=== PATIENT | male | born 1955 | race Caucasian/White ===

== ENCOUNTER 2017-09-15 16:44 | Emergency (ER) | payer MEDICAID ==
[~2017-09-15] VITALS: Ht 182.9 cm; Wt 135.0 kg
[~2017-09-15 16:44] MED LIST: FURO40TA PO; HUMI40KI SQ; HYDR-3516 PO; LISI-515 PO; METO1TAB9 PO; SIMV40TA PO; VESI5TAB2 PO; VIAG100T PO
[2017-09-15 16:46] VITALS: BP 175/99; PULSE 89; RESP 16; TEMP 99.1; O2SAT 95
[2017-09-15 17:24] VITALS: O2SAT 95
[2017-09-15] MEDS ORDERED: SODIUM CHLOR 0.9% 1000 ML INJ 1,000 ML IV ONE (17:30)
[2017-09-15] MEDS ORDERED: methylPREDNISolone SOD SUCC 125 MG/2 ML VIAL IV PUSH ONE (17:30)
--- NOTE | 2017-09-15 17:53 | PD ---
HPI Chief Complaint: GI Complaint Time Seen by Provider: 17:03 Travel History International Travel<30 days: No Contact w/Intl Traveler<30days: No Traveled to known affect area: No History of Present Illness HPI Patient is a 62-year-old male presents to emergency room with complaints of a URI. Patient reports that since Monday, he has not been feeling well, patient reports that he has had a productive cough, sore throat, myalgias. Patient reports that he is feeling warm, he is unsure if he has been having fevers. Reports that when he coughs, he has coughing fits and does have productive thick sputum. Reports that last night, he coughed up thick mucus and swallowed it, reports that he is unsure if he coughed up blood since it tasted like blood. Reports that his girlfriend was sick with similar symptoms. He did have the flu vaccination this year. Patient denies any chest pain or shortness of breath at this time, denies any recent travels, reports the only sick contact he has had was his girlfriend. Patient denies abdominal pain, denies any nausea vomiting, denies any consultation or diarrhea. PFSH Past Medical History Hx Anticoagulant Therapy: Yes (BABY ASA DAILY) Heart Rhythm Problems: No Cancer: No Cardiovascular Problems: Yes (HTN) High Cholesterol: Yes Chest Pain: No Congestive Heart Failure: No Diabetes: No Diminished Hearing: No Endocrine: No Genitourinary: No Hepatitis: No Hiatal Hernia: No Hypertension: Yes (ON MEDICATIONS) Immune Disorder: Yes (RA) Musculoskeletal: Yes (PSORIATIC ARTHRITIS, RHEUMATOID ARTHRITIS) Neurologic: No Reproductive: No Respiratory: No Thyroid Disease: No Tetanus Vaccination: Unknown Influenza Vaccination: No Past Surgical History Abdominal Surgery: No AICD: No Cardiac Surgery: No Endocrine Surgery: No Genitourinary Surgery: No Joint Replacement: Yes (l hip) Oral Surgery: Yes (TONSILLECTOMY CHILDHOOD) Pacemaker: No Thoracic Surgery: No Other Surgery: Yes (LEFT HIP REPLACEMENT) Social History Alcohol Use: Yes Tobacco Use: No Substance Use: No Allergies-Medications (Allergen,Severity, Reaction): Coded Allergies: cephalexin (Verified Allergy, Severe, RASH, 09/15/17) Reported Meds & Prescriptions Reported Meds & Active Scripts Active Vesicare (Solifenacin) 5 Mg Tab 5 Mg PO DAILY Viagra (Sildenafil Citrate) 100 Mg Tab 100 Mg PO DAILY PRN Reported Humira 2-Pack Inj (Adalimumab 2-Pack Inj) 40 Mg/0.8 Ml Syr 40 Mg SQ Q14D Hydrocodone-Acetaminophen 5-325 mg Tab 1 Tab PO Q6H PRN Simvastatin 40 Mg Tab 40 Mg PO HS Furosemide 40 Mg Tab 40 Mg PO DAILY Lisinopril 20 Mg Tab 20 Mg PO BID Metoprolol Succinate ER 24 HR (Metoprolol Succinate) 50 Mg Tab 50 Mg PO BID Review of Systems General / Constitutional: Positive: Chills, No: Fever Eyes: No: Visual changes HENT: No: Headaches Cardiovascular: No: Chest Pain or Discomfort Respiratory: Positive: Cough, No: Shortness of Breath, Wheezing, Other Gastrointestinal: No: Nausea, Vomiting, Abdominal Pain, Constipation Genitourinary: No: Dysuria Musculoskeletal: No: Pain Skin: No Rash Neurologic: No: Weakness Psychiatric: No: Depression Endocrine: No: Polydipsia Hematologic/Lymphatic: No: Easy Bruising Physical Exam Narrative GENERAL: NAD SKIN: Focused skin assessment warm/dry. HEAD: Atraumatic. Normocephalic. EYES: Pupils equal and round. No scleral icterus. No injection or drainage. ENT: No nasal bleeding or discharge. Mucous membranes pink and moist. NECK: Trachea midline. No JVD. CARDIOVASCULAR: Regular rate and rhythm. No murmur appreciated. RESPIRATORY: No accessory muscle use. Clear to auscultation. Breath sounds equal bilaterally. GASTROINTESTINAL: Abdomen soft, non-tender, nondistended. Hepatic and splenic margins not palpable. MUSCULOSKELETAL: No obvious deformities. No clubbing. No cyanosis. No edema. NEUROLOGICAL: Awake and alert. No obvious cranial nerve deficits. Motor grossly within normal limits. Normal speech. PSYCHIATRIC: Appropriate mood and affect; insight and judgment normal. Data Data Last Documented VS Vital Signs Date Time Temp Pulse Resp B/P (MAP) Pulse Ox O2 Delivery O2 Flow Rate FiO2 09/15/17 17:24 95 Room Air 09/15/17 16:46 99.1 89 16 175/99 (124) Orders Orders Complete Blood Count With Diff (09/15/17 17:17) Comprehensive Metabolic Panel (09/15/17 17:17) Influenzae A/B Antigen (09/15/17 17:17) Urinalysis - C+S If Indicated (09/15/17 17:17) Chest, Pa & Lat (09/15/17 17:17) Ecg Monitoring (09/15/17 17:17) Iv Access Insert/Monitor (09/15/17 17:17) Oximetry (09/15/17 17:17) Group A Rapid Strep Screen (09/15/17 17:17) Sodium Chlor 0.9% 1000 Ml Inj (Ns 1000 M (09/15/17 17:30) Methylprednisolone So Succ Inj (Solumedr (09/15/17 17:30) Prothrombin Time / Inr (Pt) (09/15/17 17:20) Act Partial Throm Time (Ptt) (09/15/17 17:20) Strep Culture (Group A) (09/15/17 17:40) Albuterol Hfa Inh (Proair Hfa Inh) (09/15/17 19:00) Azithromycin (Zithromax) (09/15/17 19:00) Labs Laboratory Tests Test 09/15/17 17:40 09/15/17 17:45 White Blood Count 5.2 TH/MM3 Red Blood Count 4.63 MIL/MM3 Hemoglobin 13.9 GM/DL Hematocrit 41.2 % Mean Corpuscular Volume 88.9 FL Mean Corpuscular Hemoglobin 30.0 PG Mean Corpuscular Hemoglobin Concent 33.7 % Red Cell Distribution Width 14.1 % Platelet Count 118 TH/MM3 Mean Platelet Volume 8.2 FL Neutrophils (%) (Auto) 68.5 % Lymphocytes (%) (Auto) 13.5 % Monocytes (%) (Auto) 13.9 % Eosinophils (%) (Auto) 3.7 % Basophils (%) (Auto) 0.4 % Neutrophils # (Auto) 3.6 TH/MM3 Lymphocytes # (Auto) 0.7 TH/MM3 Monocytes # (Auto) 0.7 TH/MM3 Eosinophils # (Auto) 0.2 TH/MM3 Basophils # (Auto) 0.0 TH/MM3 CBC Comment DIFF FINAL Differential Comment Prothrombin Time 9.7 SEC Prothromb Time International Ratio 1.0 RATIO Activated Partial Thromboplast Time 26.8 SEC Blood Urea Nitrogen 23 MG/DL Creatinine 1.40 MG/DL Random Glucose 100 MG/DL Total Protein 7.6 GM/DL Albumin 4.0 GM/DL Calcium Level 8.4 MG/DL Alkaline Phosphatase 57 U/L Aspartate Amino Transf (AST/SGOT) 47 U/L Alanine Aminotransferase (ALT/SGPT) 69 U/L Total Bilirubin 0.6 MG/DL Sodium Level 137 MEQ/L Potassium Level 3.9 MEQ/L Chloride Level 103 MEQ/L Carbon Dioxide Level 25.9 MEQ/L Anion Gap 8 MEQ/L Estimat Glomerular Filtration Rate 52 ML/MIN Urine Color YELLOW Urine Turbidity CLEAR Urine pH 5.5 Urine Specific [place] 1.020 Urine Protein NEG mg/dL Urine Glucose (UA) NEG mg/dL Urine Ketones NEG mg/dL Urine Occult Blood TRACE Urine Nitrite NEG Urine Bilirubin NEG Urine Urobilinogen 0.2 MG/DL Urine Leukocyte Esterase NEG Urine RBC 3-5 /hpf Urine WBC 0-2 /hpf Urine Squamous Epithelial Cells 0-5 /hpf Urine Bacteria NONE /hpf Microscopic Urinalysis Comment CULT NOT INDICATED MDM Medical Decision Making Medical Screen Exam Complete: Yes Emergency Medical Condition: Yes Medical Record Reviewed: Yes Interpretation(s) Vital Signs Date Time Temp Pulse Resp B/P (MAP) Pulse Ox O2 Delivery O2 Flow Rate FiO2 09/15/17 17:24 95 Room Air 09/15/17 16:46 99.1 89 16 175/99 (124 95 Differential Diagnosis Viral syndrome, influenza, pneumonia, bronchitis Narrative Course 62-year-old male presents to emergency room with complaints of myalgias, subjective fever and chills, productive cough since Monday. Patient reports that his girlfriend was recently sick with similar symptoms and may have been diagnosed with influenza. Patient denies any hemoptysis although he thinks that his phlegm tasted like blood when he coughed last night. During the course of the patients emergency department visit, the patients history, examination, and differential diagnosis were reviewed with the patient. The patient was placed on a front desk monitor with oximetry and frequent blood pressure monitoring. The patient had an IV access obtained and blood work sent for analysis. The patient was initially provided IV Solu-Medrol, IV fluids The patients laboratory studies were reviewed and remarkable for : Laboratory Tests Test 09/15/17 17:40 09/15/17 17:45 White Blood Count 5.2 TH/MM3 (4.0-11.0) Red Blood Count 4.63 MIL/MM3 (4.50-5.90) Hemoglobin 13.9 GM/DL (13.0-17.0) Hematocrit 41.2 % (39.0-51.0) Mean Corpuscular Volume 88.9 FL (80.0-100.0) Mean Corpuscular Hemoglobin 30.0 PG (27.0-34.0) Mean Corpuscular Hemoglobin Concent 33.7 % (32.0-36.0) Red Cell Distribution Width 14.1 % (11.6-17.2) Platelet Count 118 TH/MM3 (150-450) Mean Platelet Volume 8.2 FL (7.0-11.0) Neutrophils (%) (Auto) 68.5 % (16.0-70.0) Lymphocytes (%) (Auto) 13.5 % (9.0-44.0) Monocytes (%) (Auto) 13.9 % (0.0-8.0) Eosinophils (%) (Auto) 3.7 % (0.0-4.0) Basophils (%) (Auto) 0.4 % (0.0-2.0) Neutrophils # (Auto) 3.6 TH/MM3 (1.8-7.7) Lymphocytes # (Auto) 0.7 TH/MM3 (1.0-4.8) Monocytes # (Auto) 0.7 TH/MM3 (0-0.9) Eosinophils # (Auto) 0.2 TH/MM3 (0-0.4) Basophils # (Auto) 0.0 TH/MM3 (0-0.2) CBC Comment DIFF FINAL Differential Comment Prothrombin Time 9.7 SEC (9.8-11.6) Prothromb Time International Ratio 1.0 RATIO Activated Partial Thromboplast Time 26.8 SEC (24.3-30.1) Blood Urea Nitrogen 23 MG/DL (7-18) Creatinine 1.40 MG/DL (0.60-1.30) Random Glucose 100 MG/DL (74-106) Total Protein 7.6 GM/DL (6.4-8.2) Albumin 4.0 GM/DL (3.4-5.0) Calcium Level 8.4 MG/DL (8.5-10.1) Alkaline Phosphatase 57 U/L (45-117) Aspartate Amino Transf (AST/SGOT) 47 U/L (15-37) Alanine Aminotransferase (ALT/SGPT) 69 U/L (12-78) Total Bilirubin 0.6 MG/DL (0.2-1.0) Sodium Level 137 MEQ/L (136-145) Potassium Level 3.9 MEQ/L (3.5-5.1) Chloride Level 103 MEQ/L (98-107) Carbon Dioxide Level 25.9 MEQ/L (21.0-32.0) Anion Gap 8 MEQ/L (5-15) Estimat Glomerular Filtration Rate 52 ML/MIN (>89) Urine Color YELLOW (YELLW/STRAW) Urine Turbidity CLEAR (CLEAR) Urine pH 5.5 (5.0-8.5) Urine Specific [place] 1.020 (1.002-1.035) Urine Protein NEG mg/dL (NEG-TRACE) Urine Glucose (UA) NEG mg/dL (NEG) Urine Ketones NEG mg/dL (NEG) Urine Occult Blood TRACE (NEG) Urine Nitrite NEG (NEG) Urine Bilirubin NEG (NEG) Urine Urobilinogen 0.2 MG/DL (LESS THAN Urine Leukocyte Esterase NEG (NEG) Urine RBC 3-5 /hpf (0-3) Urine WBC 0-2 /hpf (0-5) Urine Squamous Epithelial Cells 0-5 /hpf (0-5) Urine Bacteria NONE /hpf (NONE) Microscopic Urinalysis Comment CULT NOT INDICATED Radiology studies were reviewed and remarkable for: Microbiology Date/Time Source Procedure Growth Status 09/15/17 17:40 Throat Group A Streptococcus Screen Pending Received 09/15/17 17:40 Nasal Washing Influenza Types A,B Antigen (RADHA) - Final NEGATIVE FOR FLU A AND B ANTIGEN.... Complete 09/15/17 17:40 Throat Group A Streptococcus Screen (RADHA) - Final Complete Last Impressions Chest X-Ray 09/15/17 1717 Signed Impressions: Service Date/Time: Friday, September 15, 2017 17:34 - CONCLUSION: Minimal peribronchial thickening and bibasilar parenchymal changes. Riki Ruiz MD FACR Labs reviewed including x-ray. chest x-ray shows minimal peribronchial thinking and bibasilar prequel changes, patient with most likely acute bronchitis. Plan to start patient on steroids, neb treatments, azithromycin, discussed need for follow-up with his primary care doctor. Signs and symptoms of when to return to the emergency room was reviewed patient detail. Diagnosis Primary Impression: Bronchitis Additional Impression: Thrombocytopenia Patient Instructions: General Instructions Additional Instructions: Please provide patient with a copy of their lab work and studies at discharge* * Please follow up with your primary care doctor in 2-3 days Return to the ER if symptoms worsen or progress Return to the ER as needed Please take all antibiotics as prescribed Med/Other Pt SpecificInfo: Prescription(s) given Scripts Prednisone (Prednisone) 20 Mg Tab 20 MG PO BID for 5 Days, #10 TAB 0 Refills Prov: Mickie Bowers DO 09/15/17 Albuterol 8.5 GM Inh (Proair Hfa 8.5 GM Inh) 90 Mcg/Act Aer 2 PUFF INH Q4-6H Y for SHORTNESS OF BREATH, #1 INHALER 0 Refills 108 mcg/actuation Prov: Mickie Boewrs DO 09/15/17 Azithromycin (Azithromycin) 500 Mg Tab 500 MG PO DAILY for Infection, #7 TAB 0 Refills Prov: Mickie Bowers DO 09/15/17 Disposition: 01 DISCHARGE HOME Condition: Stable Mickie Bowers DO Sep 15, 2017 17:53
[2017-09-15 18:03] LABS: CHLORIDE 103 MEQ/L (98-107); SODIUM (NA) 137 MEQ/L (136-145)
[2017-09-15 18:05] LABS: CALCIUM 8.4 MG/DL (8.5-10.1)
[2017-09-15 18:06] LABS: BICARBONATE 25.9 MEQ/L (21.0-32.0); BLOOD UREA NITROGEN 23 MG/DL (7-18); GLUCOSE,RANDOM 100 MG/DL (74-106)
[2017-09-15 18:07] LABS: PROTHROMBIN TIME - PATIENT 9.7 SEC (9.8-11.6)
[2017-09-15 18:09] LABS: ALT (GPT) 69 U/L (12-78); AST (GOT) 47 U/L (15-37); AUTOMATED NEUTROPHIL # 3.6 TH/MM3 (1.8-7.7); BASOPHIL % 0.4 % (0.0-2.0); EOSINOPHIL # 0.2 TH/MM3 (0-0.4); EOSINOPHIL % 3.7 % (0.0-4.0); GLOMERULAR FILTRATION RATE 52 ML/MIN (>89); HEMATOCRIT 41.2 % (39.0-51.0); HEMOGLOBIN 13.9 GM/DL (13.0-17.0); LYMPH % 13.5 % (9.0-44.0); LYMPHOCYTE # 0.7 TH/MM3 (1.0-4.8); MEAN CELL VOLUME 88.9 FL (80.0-100.0); MEAN CORPUSCULAR HGB CONC 33.7 % (32.0-36.0); MEAN PLATELET VOLUME 8.2 FL (7.0-11.0); MONO % 13.9 % (0.0-8.0); MONOCYTE # 0.7 TH/MM3 (0-0.9); NEUT % 68.5 % (16.0-70.0); PLATELET COUNT 118 TH/MM3 (150-450); RED BLOOD COUNT 4.63 MIL/MM3 (4.50-5.90); RED CELL DISTRIBUTION WIDTH 14.1 % (11.6-17.2)
[2017-09-15 18:11] LABS: TOTAL BILIRUBIN ADULT 0.6 MG/DL (0.2-1.0); TOTAL PROTEIN 7.6 GM/DL (6.4-8.2)
[2017-09-15 18:12] LABS: ALKALINE PHOSPHATASE 57 U/L (45-117)
[2017-09-15 18:13] LABS: BILIRUBIN, URINE NEG (NEG); BLOOD, URINE TRACE (NEG); GLUCOSE,URINE NEG (NEG); KETONE, URINE NEG (NEG); NITRITE,URINE NEG (NEG); PH, URINE 5.5 (5.0-8.5); URINE COLOR YELLOW (YELLW/STRAW); URINE LEUKOCYTE ESTERASE NEG (NEG)
[2017-09-15 18:13] LABS: WHITE BLOOD COUNT 5.2 TH/MM3 (4.0-11.0)
[2017-09-15 18:17] LABS: SQUAMOUS EPITHELIAL CELL URINE 0-5 /hpf (0-5); WBC, URINE 0-2 /hpf (0-5)
--- NOTE | 2017-09-15 18:47 | RADRPT ---
EXAM DATE/TIME: 09/15/2017 17:34 [facility] COMPARISON: No previous studies available for comparison. INDICATIONS : Cough, fever, and wheezing. MEDICAL HISTORY : Hypertension. SURGICAL HISTORY : None. ENCOUNTER: Initial ACUITY: 4 - 6 days PAIN SCORE: 0/10 LOCATION: Bilateral chest FINDINGS: Minimal peribronchial thickening and bibasilar parenchymal changes.. The cardiomediastinal contours are unremarkable. Osseous structures are intact. CONCLUSION: Minimal peribronchial thickening and bibasilar parenchymal changes. Riki Ruiz MD FACR on September 15, 2017 at 18:44 Board Certified Radiologist. This report was verified electronically.
[2017-09-15] MEDS ORDERED: ALBUTEROL SULFATE 90 MCG/ACT HFA 8 GM INHALER INH ONE (19:00)
[2017-09-15] MEDS ORDERED: AZITHROMYCIN 250 MG TAB PO ONE (19:00)
[2017-09-15] MEDS ORDERED: AZIT500T2 PO (19:01)
[2017-09-15] MEDS ORDERED: PRED20 PO (19:01)
[2017-09-15] MEDS ORDERED: ALBUAER3 INH (19:01)
[2017-09-15 19:22] VITALS: BP 146/82; TEMP 99.2
== END 2017-09-15 19:27 | disposition home or self-care (01) ==
LOC: PHED 16:44
DX: J40 Bronchitis, not specified as acute or chronic (principal); D69.6 Thrombocytopenia, unspecified; I10 Essential (primary) hypertension; E78.00 Pure hypercholesterolemia, unspecified; M06.9 Rheumatoid arthritis, unspecified
CPT/HCPCS: 71046; 80053; 81001; 85025; 85610; 85730; 87081; 87804; 87880; 96361; 96374; 99284; J2930; J7030